=== PATIENT | female | born 1975 | race Caucasian/White ===

== ENCOUNTER 2020-09-16 07:15 | Outpatient (REF) | payer OTHER, SELFPAY ==
[2020-09-16 11:27] LABS: MANUAL DIFF FLAG NO
[2020-09-16 12:04] LABS: Basophils Percent Auto 0.4 % (0-2); Eosinophils Absolute Auto 0.4 X10*3/uL (0.0-0.4); Hematocrit 38.9 % (37-47); Hemoglobin 12.7 g/dl (12.0-16.0); Imm Gran Abs Auto 0.04 X10*3/uL (0.00-0.03); Imm Gran Pct Auto 0.4 % (0.0-0.4); Lymphocytes Absolute Auto 2.3 X10*3/uL (1.2-4.9); Mean Corpuscular HGB Conc 32.6 g/dl (31.0-35.0); Mean Corpuscular Hemoglobin 28.9 pg (27.0-33.0); Mean Corpuscular Volume 88.6 fL (80-98); Mean Platelet Volume 10.4 fL (9.4-12.3); Monocytes Absolute Auto 0.8 X10*3/uL (0.1-1.2); Monocytes Percent Auto 8.6 % (2-11); Neutrophils Percent Auto 62.6 % (45-73); Platelet Count 325 X10*3/uL (160-400); Red Blood Count 4.39 X10*6/uL (4.20-5.50); Red Cell Distribution Width 13.4 % (11.0-16.0); White Blood Count 9.5 X10*3/uL (4.8-10.8)
[2020-09-16 12:15] LABS: Alanine Aminotransferase 12 U/L (0-31); Albumin Level 3.9 g/dL (3.5-5.0); Alkaline Phosphatase 65 U/L (39-117); Anion Gap 12 (12-20); Aspartate Amino Transferase 14 U/L (5-31); Bilirubin Total 0.9 mg/dL (0.0-1.0); Blood Urea Nitrogen 11 mg/dL (9-16); Calcium 9.1 mg/dL (8.4-10.2); Carbon Dioxide 22 mmol/L (22-29); Chloride 109 mmol/L (96-108); Cholesterol 150 mg/dL; Estimated Glomerular Filt Rate > 60; Glucose Fasting 95 mg/dL (60-99); HDL Cholesterol 53 mg/dL; LDL Cholesterol Calculated 83 mg/dl; Potassium 3.9 mmol/L (3.3-5.1); Sodium 139 mmol/L (135-145); Total Protein 6.7 g/dL (6.5-8.0); Triglycerides 74 mg/dL
[2020-09-16 12:40] LABS: Free T4 (Free Thyroxine) 0.87 ng/dL (0.71-1.85); Thyroid Stimulating Hormone 1.34 uIU/mL (0.32-4.0)
[2020-09-17 15:23] LABS: Triiodothyronine T3 Total 85 ng/dL (76-181)
== END 2020-09-16 07:16 | disposition home or self-care (01) ==
LOC: HO.HMGCLDS 07:15
PROVIDERS: PCP Family Medicine; Visit Provider Family Medicine
DX: Z00.00 Encounter for general adult medical examination without abnormal findings (principal); E03.9 Hypothyroidism, unspecified
CPT/HCPCS: 36415; 80053; 80061; 84439; 84443; 84480; 85025

== ENCOUNTER 2020-10-21 10:39 | Outpatient (REF) | payer OTHER, SELFPAY ==
[2020-10-22 17:06] LABS: Lyme Abs Screen <0.90 index
== END 2020-10-21 10:40 | disposition home or self-care (01) ==
LOC: HO.HMGCLDS 10:39
PROVIDERS: PCP Family Medicine; Visit Provider Family Medicine
DX: M25.50 Pain in unspecified joint (principal)
CPT/HCPCS: 36415; 86617; 86618

== ENCOUNTER 2021-04-14 11:27 | Outpatient (REF) | payer OTHER, SELFPAY ==
[2021-04-17 19:56] LABS: TS Negative Control Passed; TS Panel A 0; TS Panel B 0; TS Positive Control Passed; TSpotTB Negative (Negative)
== END 2021-04-14 11:28 | disposition home or self-care (01) ==
LOC: HO.WFDLDS 11:27
PROVIDERS: Visit Provider Hospitalist
DX: Z11.1 Encounter for screening for respiratory tuberculosis (principal)
CPT/HCPCS: 36415; 86481

== ENCOUNTER 2022-06-09 17:04 | Emergency (ER) | payer OTHER, SELFPAY ==
--- NOTE | 2022-06-09 17:17 | ED_ITS ---
HPI - Allergic Reaction General Chief complaint: Allergic Reaction Stated complaint: Allergic Reaction Time Seen by Provider: 06/09/22 17:16 Source: patient and EMS Mode of arrival: EMS Limitations: no limitations History of Present Illness HPI narrative: 47-year-old female who presents emergency department for evaluation of allergic reaction. The patient states that she was eating jalapeno nose. Approximately 10-15 minutes after eating her throat became swollen. She became short of breath. She states that her skin was itchy but she did not developed a rash. Patient states she has had similar problems in the past secondary to allergic reactions. Patient called an ambulance. She was treated with epinephrine 0.3 mg IM and Solu-Medrol 125 mg IV. She took 75 mg of Benadryl orally herself. She is also given albuterol nebulizer treatment EN route. When she arrived in the emergency department she states she was feeling significantly better but she still had the sensation of throat swelling therefore she was given a 2nd dose of epinephrine 0.5 mg IM. Related Data Previous Rx's Medication Instructions Recorded epinephrine 0.3 mg/0.3 mL 0.3 mg (0.3 mL) IM Q4H PRN 06/09/22 injection, auto-injector (EpiPen anaphylaxis #2 ea 2-Kory) prednisone 20 mg tablet 40 mg PO DAILY 5 days #10 tabs 06/09/22 Allergies Allergy/AdvReac Type Severity Reaction Status Date / Time erythromycin base Allergy Unknown Rash Verified 05/09/22 08:08 nitrofurantoin Allergy Unknown Difficulty Verified 05/09/22 08:08 [From Macrodantin] Breathing Review of Systems Review of Systems: Yes all other systems are reviewed and are negative [facility] Past Medical History [facility] Narrative: Past medical history: Asthma. Social history: She denies tobacco use. She occasionally drinks alcohol. She denies drug use. Medical History (Updated 06/09/22 @ 19:18 by Ivan Bacon MD) History of radioactive iodine thyroid ablation Family History Family History Mother No problems noted. Father No problems noted. Social History Social History Housing: House Alcohol intake: current Alcohol intake frequency: holidays/special occasions only Alcohol type: wine Patient Tobacco Use Status: Never used Tobacco Smoked in Last 30 Days: No Use of substances other than those prescribed or required for medical reasons: No Advance Directives: No Advance Directives Information Provided: No Current occupational status: unemployed Physical Exam ED Vital Signs: Vital Signs - 24 hr 06/09/22 17:53 06/09/22 18:00 Pulse Rate 97 83 Respiratory Rate 16 18 Blood Pressure 194/97 H 122/54 L Pulse Oximetry 100 100 Oxygen Delivery Method Room Air Room Air BMI result Body Mass Index 26.6 Const General: cooperative and no acute distress Orientation/consciousness: oriented to person and oriented to place Limitations: no limitations HENMT Head: Yes normal to inspection, Yes normocephalic and Yes atraumatic Ears: external ears normal General nose exam: Normal external nose present Face and sinus: Yes normal facial exam Mouth: Normal oral and palatal mucosa present Throat: Yes posterior oropharynx normal Eyes General: appearance normal, both eyes and all related structures Pupils: Equal, round and reactive pupils present Neck Neck: Yes normal visual inspection, Yes no lymphadenopathy, Yes trachea midline and Yes supple Chest Chest palpation & inspection: normal inspection of the chest and normal palpation of entire chest wall Resp Effort & Inspection: normal respiratory effort and able to speak in complete sentences Auscultation: clear to auscultation bilaterally Cardio Rate: regular rate Rhythm: regular rhythm Heart sounds: S1 normal heart sound present, S2 normal heart sound present and no murmurs GI Inspection: Yes normal to inspection Palpation (GI): Soft to palpation, nontender and no guarding Auscultation: normal bowel sounds General: Yes no CVA tenderness Back/Spine/Pelvis Back: no CVA tenderness Skin General skin exam: no rashes or lesions noted Neuro General: oriented to person and oriented to place Cranial nerves: Yes CN's II-XII intact bilaterally and Yes Equal, round and reactive pupils present Cognition (Neuro): normal cognition Motor exam (neuro): 5/5 motor strength present throughout Extrem General: Yes normal to inspection Psych Appearance: grossly normal Speech and movement: Normal speech and movement present Affect: normal affect Attitude: cooperative Thought process: Normal thought process present Thought content: Normal thought content present Medical Decision Making Medical Decision Making MDM Narrative: 47-year-old female who presents emergency department for evaluation acute allergic reaction with throat swelling, pruritus, shortness of breath after eating a jalapeno peppers. Patient was treated with epinephrine, albuterol and Solu-Medrol prior to coming to emergency department. In the emergency department she required a 2nd dose of epinephrine 0.5 mg IM. Patient was observed in the emergency department on an O2 saturation and shelter monitor for approximately 1-2 hours. She has had no rebound. She is feeling significantly better. She will be discharged home. The patient was given a prescription for prednisone 40 mg once a day for 5 days and epi pens. She was given printed and verbal instructions. Differential Diagnosis Differential diagnosis includes was not limited to acute allergic reaction, local edema Discharge Plan Discharge Clinical Impression: Anaphylaxis Qualifiers: Encounter type: initial encounter Qualified Code(s): T78.2XXA - Anaphylactic shock, unspecified, initial encounter Patient Disposition: Home, Self-Care Instructions: Food Allergy (ED), General Allergic Reaction (ED) Additional Instructions: Your symptoms and presentation were consistent with a severe allergic reaction (anaphylaxis) Take Benadryl (diphenhydramine) 25 mg pills, 2 pills 4 times a day for the next 2-3 days as needed for itchiness or rash. This medication will make you sleepy. Do not drive or work while taking this medication. Take prednisone 20 mg pills, 3 pills once a day for 5 days. While you are taking prednisone, do not take any NSAIDs (Motrin, Advil, ibuprofen, Aleve, naproxen). I am prescribing an EpiPen for you. You should carry this with you. If you get symptoms similar to today's symptoms you should give yourself and intermuscular injection of epinephrine and then call 911 to be transported to the nearest emergency department. Follow-up with your doctor in 2 days. Please return to the emergency department if your symptoms get worse or if you develop any symptoms that are concerning to you. Prescriptions: New epinephrine [EpiPen 2-Kory] 0.3 mg/0.3 mL auto-injector 0.3 mg IM Q4H PRN (Reason: anaphylaxis) Qty: 2 0RF prednisone 20 mg tablet 40 mg PO DAILY 5 Days Qty: 10 0RF
[2022-06-09 17:53] VITALS: BP 194/97; BP 209/110; PULSE 85; PULSE 97; RESP 16; O2SAT 100; BMI 26.6
[2022-06-09 18:00] VITALS: BP 122/54; PULSE 83; RESP 18; O2SAT 100
--- NOTE | 2022-06-09 18:57 | PC.NURSE ---
pt AOx3, vitals stable- O2 100% RA. will cont to monitor
--- NOTE | 2022-06-09 19:31 | PC.NURSE ---
patient a&ox3, speaking in full sentences, lungs clear, denies difficulty swallowing/difficulty breathing, pt educated on home epi pen prescribed and pt understands to come to the hospital status post using the epi pen, pt also understands side effects of prednisone prescribed. pt being discharged.
== END 2022-06-09 19:34 | disposition home or self-care (01) ==
PROVIDERS: Emergency Provider Emergency Medicine Emergency Medical Services; PCP Family Medicine
DX: L50.0 Allergic urticaria (principal); T78.00XA Anaphylactic reaction due to unspecified food, initial encounter; Z79.899 Other long term (current) drug therapy
CPT/HCPCS: 99284

== ENCOUNTER 2023-05-29 11:49 | Outpatient (AMB) | payer OTHER, SELFPAY ==
[2023-05-29 12:17] VITALS: BP 173/67; PULSE 88; RESP 12; O2SAT 99; BMI 27.7
--- NOTE | 2023-05-29 12:17 | MHC.PC.OV ---
Vital Signs 05/29/23 12:17 05/29/23 13:03 Height 5 ft 7 in Weight 177 lb BMI 27.7 BP 173/67 H 132/74 Blood Pressure Location Rt brachial Lt brachial Position Sitting Sitting Respiration 12 Pulse 88 Pulse Oximetry (%) 99 Oxygen Delivery Method Room Air Intake Visit Reasons: CPE Intake Note: Patient reports she had anaphylaxis last year and she is still unsure what she is allergic to. Patient reports she would like a referral for routine testing- mammogram. 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 No recent labs to review. [facility] Medical History (Updated 05/29/23 @ 13:12 by Christopher Livingston) Anaphylaxis History of radioactive iodine thyroid ablation Surgical History (Updated 05/29/23 @ 12:26 by Sayra Badillo CMA) No pertinent past surgical history Family History (Updated 05/29/23 @ 12:27 by Sayra Badillo CMA) Mother No problems noted. Father No problems noted. Social History (Updated 05/29/23 @ 12:28 by Sayra Badillo CMA) Household Members: Children Both parents involved: No Caregiver staying overnight: No Housing: House Are you a primary daycare provider to a significant other at home: No Do you presently have visiting nurse or other home services: No 75 years or older and lives alone: No Alcohol intake: current Alcohol intake frequency: a few times a week Alcohol type: wine Patient Tobacco Use Status: Never used Tobacco e-Cigarette/Vaping Use: Never Used Use of substances other than those prescribed or required for medical reasons: No Have you been hit, kicked, punched, or otherwise hurt by someone within the past year? 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 1. Little interest or pleasure in doing things: not at all 2. Feeling down, depressed, or hopeless: not at all 3. Trouble falling or staying asleep, or sleeping too much: not at all 4. Feeling tired or having little energy: not at all 5. Poor appetite or overeating: not at all 6. Feeling bad about yourself - or that you are a failure or have let yourself or your family down: not at all 7. Trouble concentrating on things, such as reading the newspaper or watching television: not at all 8. Moving or speaking so slowly that other people could have noticed. Or the opposite - being so fidgety or restless that you have been moving around a lot more than usual: not at all 9. Thoughts that you would be better off or of hurting yourself in some way: not at all Total score: 0 Depression Screening Interpretation: Negative Depression Screening Done: Yes 77151 - PHQ-9 Billing: Yes Source: Developed by Drs. Bruno Herrera, France Cota, Tomas Bowen and colleagues, with an educational micaela from [employer]. Thrive Questionnaire Date Thrive assessed: 05/29/23 I am a: Patient What is your living situation today?: I have a steady place to live Within the past 12 months, did the food you bought not last and you didn't have the money to get more?: Never true Within the past 12 months, did you worry whether your food would run out before you got money to buy more?: Never true Do you have trouble paying for medicines?: No Do you have trouble getting transportation to medical appointments?: No Do you have trouble paying your heating and electricity bill?: No Do you have trouble taking care of your child, family member or friend?: No Do you have trouble with day-to-day activities such as bathing, preparing meals, shopping, managing finances, etc.?: No Are you currently unemployed and looking for a job?: No Are you interested in more education?: No Please select the resources that you would like help with: None Currently or been in a relationship where the following occur: no concerns reported THRIVE Score: 0 AUDIT C Alcohol Use Questionnaire (AUDIT-C) 1. How often do you have a drink containing alcohol?: 2-4 times a month 2. How many drinks containing alcohol do you have on a typical day when you are drinking?: 1 or 2 3. How often do you have six or more drinks on one occasion?: Never Total Score: 2 NAEEM-7 AMB Questionnaire NAEEM-7 Date NAEEM - 7 assessed: 05/29/23 Feeling nervous, anxious, or on edge: 0 = Not at all Not being able to stop or control worryin = Not at all Worrying too much about different things: 0 = Not at all Trouble relaxin = Not at all Being so restless that it is hard to sit still: 0 = Not at all Becoming easily annoyed or irritable: 0 = Not at all Feeling afraid as if something awful might happen: 0 = Not at all Total NAEEM-7 score (0-4 normal; 5-9 mild; 10-14 moderate; 15-21 severe): 0 Source: Developed by Drs. Bruno Herrera, France Cota, Tomas Bowen and colleagues, with an educational micaela from [employer]. NAEEM-7 Assessment Billing NAEEM-7 Assessment Tool: NAEEM-7 Assessment 12652 Review of Systems Const Denies chills, Denies fatigue, Denies fever(s), Denies headache(s) and Denies weakness Eyes Denies change in vision ENT Denies dizziness, Denies headache(s), Denies hearing loss, Denies nasal congestion, Denies sinus pain, Denies sinus pressure and Denies sore throat Card Denies chest pain, Denies lightheadedness, Denies dyspnea and Denies other (palpitations) Resp Denies cough, Denies dyspnea and Denies wheezing GI Denies abdominal pain, Denies melena, Denies hematochezia, Denies change in bowel habits, Denies dyspepsia and Denies nausea Denies hematuria and Denies dysuria Musc Denies abnormal gait, Denies myalgias, Denies arthralgias, Denies numbness and Denies tingling Skin/Breast Denies rash, Denies unusual bruising and Denies wounds Neuro Denies abnormal gait, Denies dizziness, Denies headache(s), Denies memory loss, Denies numbness, Denies Sensory deficit (Neuro), Denies tingling and Denies weakness Psych Denies anxiety, Denies depression and Denies memory loss Endo Denies cold intolerance, Denies fatigue, Denies heat intolerance, Denies polydipsia and Denies polyuria Tree/Lymph Denies easy bleeding and Denies easy bruising Aller/Immun Denies wheezing Physical exam (Primary Care) Vital Signs: Last Vital Signs Pulse 88 05/29/23 12:17 Resp 12 05/29/23 12:17 BP 132/74 05/29/23 13:03 Pulse Ox 99 05/29/23 12:17 Oxygen Delivery Method Room Air 05/29/23 12:17 BMI result Body Mass Index 27.7 Tobacco/Smoking Status: Tobacco use Status Tobacco use date assessed 05/29/23 05/29/23 12:25 Patient Tobacco Use Status Never used Tobacco 05/29/23 12:28 e-Cigarette/Vaping Use Never Used 05/29/23 12:28 PHQ-9: PHQ-9 Score PHQ-9: Total score 0 05/29/23 13:04 Depression Screening Interpretation: Negative Thrive Assessment: Date of Thrive Assessment Date Thrive assessed 05/29/23 05/29/23 12:30 Currently or been in a relationship where the following occur: no concerns reported Const General: no acute distress, well developed, alert and awake Nutritional Appearance: well nourished Orientation/consciousness: patient oriented x3 HENMT Head: Yes normocephalic and Yes atraumatic Ears: hearing grossly normal bilaterally and TM's normal bilaterally General nose exam: Normal external nose present and Normal nares present Mouth: Normal oral and palatal mucosa present and moist mucous membranes Teeth and gingiva: dentition normal Throat: Yes posterior oropharynx normal Eyes General: appearance normal, both eyes and all related structures Pupils: Equal, round and reactive pupils present and Pupil accommodation reflex normal EOM: EOMs intact bilaterally Neck Neck: Yes normal visual inspection, Yes no lymphadenopathy and Yes trachea midline Thyroid: Thyroid normal Carotids: no bruits Lymphatic: no lymphadenopathy noted Chest Chest palpation & inspection: normal inspection of the chest Resp Effort & Inspection: normal respiratory effort Auscultation: clear to auscultation bilaterally Cardio Rate: regular rate Rhythm: regular rhythm Heart sounds: S1 normal heart sound present, S2 normal heart sound present, no gallops, no murmurs and no rubs Bruits: no abdominal aortic bruits and no carotid bruits GI Palpation (GI): No Abdominal aortic bruit present, Soft to palpation, nontender, No hepatosplenomegaly present and No Rebound tenderness present Auscultation: normal bowel sounds General: Yes no CVA tenderness Back/Spine/Pelvis Back: no CVA tenderness Cervical Spine: cervical ROM normal and No Cervical spine tenderness Thoracic/Lumbar Spine: thoraco-lumbar ROM normal, No pain with thoraco-lumbar ROM, No thoracic spinal tenderness and No lumbar spinal tenderness Skin Lesions: no lesions Rashes: no rashes Trauma: no lacerations or abrasions Wounds: no wounds Nails: normal Neuro General: patient oriented x3 Cranial nerves: Yes Equal, round and reactive pupils present Cognition (Neuro): normal cognition Gait exam (Neuro): Normal gait present Motor exam (neuro): 5/5 motor strength present throughout Sensory Exam: No Sensory deficit (Neuro) Deep tendon reflexes (DTR's): Right patellar reflex intensity grade: 2+ and Left patellar reflex intensity grade: 2+ Extrem General: Yes normal to inspection and No edema Psych Appearance: grossly normal Affect: normal affect Attitude: cooperative Thought process: Normal thought process present Assessment and Plan Assessment & Plan (1) Annual physical exam: Code(s): Z00.00 - Encounter for general adult medical examination without abnormal findings Plan: 48-year-old?female?presents?for?complete?physical?exam Encouraged?healthy?diet?with?active?lifestyle?and?plenty?of?exercise (2) Screening for cervical cancer: Code(s): Z12.4 - Encounter for screening for malignant neoplasm of cervix Plan: Patient?would?like?a?referral?back?to?de alcoholizer?at?[facility] Refer (3) Breast cancer screening by mammogram: Code(s): Z12.31 - Encounter for screening mammogram for malignant neoplasm of breast Plan: Mammogram?ordered She?wants?to?get?this?done?at?[facility]?also. If?results?are?available?at?her?follow-up?appointment?we?can?review?it (4) Screening for colon cancer: Code(s): Z12.11 - Encounter for screening for malignant neoplasm of colon Plan: Due?for?1st?screening?colonoscopy-ordered (5) Allergies: Code(s): T78.40XA - Allergy, unspecified, initial encounter Plan: History?of?allergies?and?anaphylactic?reaction?last?year. Patient?would?like?a?referral?to?immunology?for?testing.??Referred Orders: Orders Comprehensive [place]. Panel Fast Today Z00.00 - Encounter for general adult medical examination without abnormal findings Lipid Panel Today Z00.00 - Encounter for general adult medical examination without abnormal findings Microalbumin, Random (w Creat) Today I10 - Essential (primary) hypertension Triiodothyronine T3 Total Today E03.9 - Hypothyroidism, unspecified Thyroid Stimulating Hormone Today E03.9 - Hypothyroidism, unspecified UA and rflx microscopic Today Z00.00 - Encounter for general adult medical examination without abnormal findings Free T4 (Free Thyroxine) Today E03.9 - Hypothyroidism, unspecified MM tomosynthesis screening BI Today Z12.31 - Encounter for screening mammogram for malignant neoplasm of breast Referrals B[employer]NA[employer] OPERATOR Referral Z12.4 - Encounter for screening for malignant neoplasm of cervix Allergy & Immunology Referral T78.2XXA - Anaphylactic shock, unspecified, initial encounter, T78.40XA - Allergy, unspecified, initial encounter Medications: Refilled epinephrine (EpiPen 2-Kory) 0.3 mg (0.3 mL) IM Q4H PRN 2 ea 0RF anaphylaxis Coding Level of Care Code Est Pt Level 3 (60292) Est Pt Prev Care 40-64y(11298) Diagnoses Annual physical exam Z00.00 Screening for cervical cancer Z12.4 Breast cancer screening by mammogram Z12.31 Screening for colon cancer Z12.11 Allergies T78.40XA Additional Codes NAEEM-7 Assessment Billing - NAEEM-7 Assessment Tool: NAEEM-7 Assessment 59329 ([id number])
[2023-05-29 13:03] VITALS: BP 132/74
== END 2023-05-29 14:43 | disposition home or self-care (01) ==
PROVIDERS: PCP Family Medicine; Visit Provider Family Medicine
DX: Z00.00 Encounter for general adult medical examination without abnormal findings (principal); Z12.31 Encounter for screening mammogram for malignant neoplasm of breast; Z12.11 Encounter for screening for malignant neoplasm of colon; T78.40XA Allergy, unspecified, initial encounter
CPT/HCPCS: 99396

== ENCOUNTER 2023-12-28 09:09 | Outpatient (AMB) | payer OTHER, SELFPAY ==
--- NOTE | 2023-12-28 10:21 | MHC.OFFWIV ---
Intake Vital Signs 12/28/23 10:22 Height 5 ft 7 in Weight 187 lb BMI 29.3 BP 122/80 Blood Pressure Location Rt brachial Position Sitting Pulse 83 Pulse Source Pulse Oximeter Temp 98.2 F Temp Source Oral Pulse Oximetry (%) 99 Oxygen Delivery Method Room Air Intake Visit Reasons: EP Cough/asthma Intake Note: Patient here for cough which has been present for a few days. she states she has a hx of asthma and has been having chest tightness. Patient Tobacco Use Status: Never used Tobacco Allergies erythromycin base Allergy (Unknown, Verified 12/28/23 10:23) Rash nitrofurantoin [From Macrodantin] Allergy (Unknown, Verified 12/28/23 10:23) Difficulty Breathing Do you need a note to return to daycare/school/sports/work: No HPI HPI Comments History of Present Illness Details Patient is a 48-year-old female complaining of 3 days of a productive cough with yellow/white sputum as well as some increasing shortness of breath. She tells me she has asthma and has been using her albuterol inhaler with some but not complete relief in her shortness of breath. She denies any fevers, ear pain, headaches. She tells me she does not have a nebulizer machine at home but her daughter does and they have plenty albuterol nebulizer solution. She tells me she has not used the nebulizer yet but she certainly could. She states that both of her kids are sick, her son has bronchitis and her daughter had pneumonia but she is much better now. She tells me she has been using a [place] product that literally translates to clear chest that she buys on [employer] with good relief her congestion. [facility] Medical History (Updated 12/28/23 @ 10:46 by Jazmín Tejeda PA-C) Anaphylaxis History of radioactive iodine thyroid ablation Surgical History (Updated 05/29/23 @ 12:26 by Sayra Badillo CMA) No pertinent past surgical history Family History (Updated 05/29/23 @ 12:27 by Sayra Badillo CMA) Mother No problems noted. Father No problems noted. 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 Current occupational exposures/hazards: No Sexual orientation: Straight/Heterosexual Gender identity: Female Cognitive needs: No Hearing needs: No Vision needs: No Review of Systems Const All systems reviewed & are unremarkable except as noted in HPI and below Physical Exam Vital Signs: Last Vital Signs Temp 98.2 F 12/28/23 10:22 Pulse 83 12/28/23 10:22 BP 122/80 12/28/23 10:22 Pulse Ox 99 12/28/23 10:22 Oxygen Delivery Method Room Air 12/28/23 10:22 BMI result Body Mass Index 29.3 Const General: cooperative, healthy appearing, comfortable and no acute distress Orientation/consciousness: patient oriented x3 Limitations: no limitations HEENT Head: Yes normal to inspection Ears: hearing grossly normal bilaterally, external ears normal and TM's normal bilaterally General nose exam: Normal external nose present, Normal nares present and No nasal discharge present Face and sinus: Yes normal facial exam and Yes sinuses nontender Mouth: Normal oral and palatal mucosa present and moist mucous membranes Throat: Yes tonsils normal, Yes uvula midline and Yes posterior oropharynx abnormal (Erythema) Eyes General: appearance normal, both eyes and all related structures Neck Neck: Yes normal visual inspection Resp Effort & Inspection: normal respiratory effort, able to speak in complete sentences, no respiratory distress, not tachypneic, no tripod positioning and no use of accessory muscles Auscultation: clear to auscultation bilaterally Cardio Rate: regular rate Rhythm: regular rhythm Heart sounds: normal S1 and S2 Skin General skin exam: no rashes or lesions noted Neuro General: patient oriented x3 Extrem General: Yes normal to inspection and Yes no clubbing, cyanosis or edema Assessment & Plan Assessment & Plan (1) URI (upper respiratory infection): Code(s): J06.9 - Acute upper respiratory infection, unspecified Qualifiers: URI type: unspecified URI Qualified Code(s): J06.9 - Acute upper respiratory infection, unspecified Plan: Vital signs are stable, patient well-appearing and physical exam was unremarkable. Recommended she add the albuterol nebulizer to her regimen and [id number] medications to treat her symptoms. If she experiences worsening shortness of breath, she should go to the emergency department or call 911. Sent a respiratory pathogen panel as this is likely viral. Plan See above Orders: Orders Resp Pathogen Panel - [facility] Today J06.9 - Acute upper respiratory infection, unspecified Coding Level of Care Code Est Pt Level 3 (50222) Diagnoses Upper respiratory tract infection, unspecified type J06.9 URI type: unspecified URI
[2023-12-28 10:22] VITALS: BP 122/80; PULSE 83; TEMP 36.8; O2SAT 99; BMI 29.3
== END 2023-12-28 10:43 | disposition home or self-care (01) ==
PROVIDERS: PCP Family Medicine; Visit Provider Physician Assistant
DX: J06.9 Acute upper respiratory infection, unspecified (principal)